=== PATIENT | male | born 1950 | race Caucasian/White ===

== ENCOUNTER → 2016-07-27 | Outpatient (CLI) | payer BC, OTHER | LOC: GMAB 11:11 | PROVIDERS: ATTEND Family Medicine | DX: Z00.00 Encounter for general adult medical examination without abnormal findings (principal) ==

== ENCOUNTER → 2018-03-02 | Outpatient (CLI) | payer BC | LOC: GMAE 11:21 | PROVIDERS: ATTEND Family Medicine | DX: E80.7 Disorder of bilirubin metabolism, unspecified (principal); R94.6 Abnormal results of thyroid function studies ==

== ENCOUNTER → 2018-03-23 | Outpatient (CLI) | payer BC ==
--- NOTE | 2018-03-23 11:08 | US ---
EXAM DESCRIPTION: Aorta CLINICAL HISTORY: 67 years Male, Z13.89 COMPARISON: None. FINDINGS: The proximal abdominal aorta measures 2.3 cm maximum transverse diameter. The mid abdominal aorta measures 2.3 cm maximum transverse diameter. The distal abdominal aorta measures 2.5 cm maximum transverse diameter. The common iliac arteries are unremarkable, measuring 9 mm diameter on the right and 14 mm diameter on the left. IMPRESSION: No abdominal aortic aneurysm. Electronically signed by: Spenser Avina MD 03/23/2018 11:06 AM CDT
== END ==
LOC: US 08:02
PROVIDERS: ATTEND Family Medicine
DX: Z13.89 Encounter for screening for other disorder (principal)

== ENCOUNTER → 2019-05-21 | Outpatient (CLI) | payer BC | LOC: GMAE 10:43 | PROVIDERS: ATTEND Family Medicine | DX: Z00.00 Encounter for general adult medical examination without abnormal findings (principal) ==

== ENCOUNTER → 2020-06-15 | Outpatient (CLI) | payer BC | LOC: GMAE 10:43 | PROVIDERS: ATTEND Family Medicine | DX: R94.6 Abnormal results of thyroid function studies (principal); Z12.5 Encounter for screening for malignant neoplasm of prostate; Z79.899 Other long term (current) drug therapy ==